=== PATIENT | female | born 1995 | race Hispanic/Latino ===

== ENCOUNTER 2018-05-21 06:09 | Emergency (ER) | payer BC, OTHER ==
--- NOTE | 2018-05-21 06:25 | EDPHYS ---
Physician Documentation [facility] Name: Anny Gan Age: 23 yrs Sex: Female : 1995 Arrival Date: 05/21/2018 Time: 06:12 Bed 13 Private MD: ED Physician nEzo Johnson HPI: 05/21 06:23 This 23 yrs old Female presents to ER via Unassigned with complaints of Ear kb Pain. 06:23 The patient presents with pain, severe. The complaints affect the right ear. Onset: The kb symptoms/episode began/occurred this morning, at 03:00. Modifying factors: The symptoms are alleviated by nothing, the symptoms are aggravated by nothing. Associated signs and symptoms: The patient has no apparent associated signs or symptoms. Severity of symptoms: At their worst the symptoms were moderate severe in the emergency department the symptoms are unchanged. The patient has not experienced similar symptoms in the past. The patient has not recently seen a physician. 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 - Social history:: Smoking status: Patient/guardian denies using tobacco, never smoked. - Ebola Screening: : No symptoms or risks identified at this time. ROS: 06:23 Constitutional: Negative for fever, chills, and weight loss, Neck: Negative for injury, kb pain, and swelling, Cardiovascular: Negative for chest pain, palpitations, and edema, Abdomen/GI: Negative for abdominal pain, nausea, vomiting, diarrhea, and constipation, Back: Negative for injury and pain, MS/Extremity: Negative for injury and deformity, Skin: Negative for injury, rash, and discoloration, Neuro: Negative for headache, weakness, numbness, tingling, and seizure. 06:23 ENT: Positive for ear pain, rhinorrhea. 06:23 Respiratory: Positive for cough, Negative for dyspnea on exertion, hemoptysis, orthopnea, pleurisy, shortness of breath, sputum production, wheezing. Exam: 06:23 Constitutional: This is a well developed, well nourished patient who is awake, alert, kb and in no acute distress. Head/Face: Normocephalic, atraumatic. Chest/axilla: Normal chest wall appearance and motion. Nontender with no deformity. No lesions are appreciated. Cardiovascular: Regular rate and rhythm with a normal S1 and S2. No gallops, murmurs, or rubs. Normal PMI, no JVD. No pulse deficits. Respiratory: Lungs have equal breath sounds bilaterally, clear to auscultation and percussion. No rales, rhonchi or wheezes noted. No increased work of breathing, no retractions or nasal flaring. Abdomen/GI: Soft, non-tender, with normal bowel sounds. No distension or tympany. No guarding or rebound. No evidence of tenderness throughout. Skin: Warm, dry with normal turgor. Normal color with no rashes, no lesions, and no evidence of cellulitis. MS/ Extremity: Pulses equal, no cyanosis. Neurovascular intact. Full, normal range of motion. Neuro: Awake and alert, GCS 15, oriented to person, place, time, and situation. Cranial nerves II-XII grossly intact. Motor strength 5/5 in all extremities. Sensory grossly intact. Cerebellar exam normal. Normal gait. 06:23 ENT: External ear(s): are unremarkable, Ear canal(s): are normal, TM's: bulging, on the right, erythema, that is moderate, on the right, Nose: is normal, Mouth: is normal, Posterior pharynx: is normal. Vital Signs: 06:15 BP 103 / 73; Pulse 95; Resp 18 S; Temp 98.7(O); Pulse Ox 100% on R/A; Weight 72.57 kg cc3 (R); Height 5 ft. 5 in. (165.10 cm) (R); 06:15 Body Mass Index 26.63 (72.57 kg, 165.10 cm) cc3 MDM: 06:21 Patient medically screened. kb 06:23 Data reviewed: vital signs, nurses notes. Data interpreted: Pulse oximetry: on room air kb is 100 %. Interpretation: normal. Counseling: I had a detailed discussion with the patient and/or guardian regarding: the historical points, exam findings, and any diagnostic results supporting the discharge/admit diagnosis, the need for outpatient follow up, a family practitioner, to return to the emergency department if symptoms worsen or persist or if there are any questions or concerns that arise at home. Administered Medications: 06:35 CANCELLED (Duplicate Order): Tylenol 1000 mg PO once kb 06:36 Drug: Tylenol 1000 mg Route: PO; cc3 06:39 Follow up: Response: No adverse reaction cc3 Disposition: 05/21/18 06:25 Discharged to Home. Impression: Otitis media, unspecified, right ear. - Condition is Stable. - Discharge Instructions: Otitis Media, Adult, [id number]. - Prescriptions for Amoxicillin 875 mg Oral Tablet - take 1 tablet by ORAL route every 12 hours for 7 days; 14 tablet. - Medication Reconciliation Form, Thank You Letter, Antibiotic Education, Prescription Opioid Use form. - Follow up: Emergency Department; When: As needed; Reason: Worsening of condition. Follow up: Private Physician; When: 2 - 3 days; Reason: Recheck today's complaints, Continuance of care, Re-evaluation by your physician. Signatures: Jazmin Nowak FNP-C FNP-Jennifer Sherman cc3 Corrections: (The following items were deleted from the chart) 06:35 06:35 Tylenol 1000 mg PO once ordered. kb kb 06:40 06:25 05/21/2018 06:25 Discharged to Home. Impression: Otitis media, unspecified, right cc3 ear. Condition is Stable. Forms are Medication Reconciliation Form, Thank You Letter, Antibiotic Education, Prescription Opioid Use. Follow up: Emergency Department; When: As needed; Reason: Worsening of condition. Follow up: Private Physician; When: 2 - 3 days; Reason: Recheck today's complaints, Continuance of care, Re-evaluation by your physician. kb
--- NOTE | 2018-05-21 06:25 | ER ---
Nurse's Notes [facility] Name: Anny Gan Age: 23 yrs Sex: Female : 1995 Arrival Date: 05/21/2018 Time: 06:12 Bed 13 Private MD: Diagnosis: Otitis media, unspecified, right ear Presentation: 05/21 06:15 Presenting complaint: Patient states: nontraumatic right ear pain since 0330H this cc3 morning. Transition of care: patient was not received from another setting of care. Onset of symptoms was May 21, 2018. Risk Assessment: Do you want to hurt yourself or someone else? Patient reports no desire to harm self or others. Initial Sepsis Screen: Does the patient meet any 2 criteria? No. Patient's initial sepsis screen is negative. Does the patient have a suspected source of infection? No. Patient's initial sepsis screen is negative. Care prior to arrival: None. 06:15 Method Of Arrival: Ambulatory cc3 06:15 Acuity: CRESCENCIO 4 cc3 Triage Assessment: 06:15 General: Appears in no apparent distress. comfortable, Behavior is calm, cooperative, cc3 appropriate for age. Pain: Complains of pain in right ear. EENT: Reports pain in right ear. Neuro: Level of Consciousness is awake, alert, obeys commands, Oriented to person, place, time, situation, Appropriate for age. Cardiovascular: Denies chest pain, Patient's skin is warm and dry. Respiratory: Airway is patent Respiratory effort is even, unlabored, Respiratory pattern is regular, symmetrical. GI: Abdomen is round patient 13 weeks . : No signs and/or symptoms were reported regarding the genitourinary system. Derm: No signs and/or symptoms reported regarding the dermatologic system. Musculoskeletal: Circulation, motion, and sensation intact. Range of motion: intact in all extremities. 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 - Social history:: Smoking status: Patient/guardian denies using tobacco, never smoked. - Ebola Screening: : No symptoms or risks identified at this time. Screenin:15 Abuse screen: Denies threats or abuse. Denies injuries from another. Nutritional cc3 screening: No deficits noted. Tuberculosis screening: No symptoms or risk factors identified. Fall Risk Ambulatory Aid- None/Bed Rest/Nurse Assist (0 pts). Gait- Normal/Bed Rest/Wheelchair (0 pts) Mental Status- Oriented to own ability (0 pts). Assessment: 06:15 General: see triage assessment. cc3 06:39 Reassessment: Patient appears in no apparent distress at this time. Patient and/or cc3 family updated on plan of care and expected duration. Pain level reassessed. Patient is alert, oriented x 3, equal unlabored respirations, skin warm/dry/pink. 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 No IV cannula in situ. Patient left ER vitally stable and ambulatory with her mother. Vital Signs: 06:15 BP 103 / 73; Pulse 95; Resp 18 S; Temp 98.7(O); Pulse Ox 100% on R/A; Weight 72.57 kg cc3 (R); Height 5 ft. 5 in. (165.10 cm) (R); 06:15 Body Mass Index 26.63 (72.57 kg, 165.10 cm) cc3 ED Course: 06:12 Patient arrived in ED. ds1 06:12 Jennifer Nick is Primary Nurse. cc3 06:15 Arm band placed on right wrist. Patient notified of wait time. cc3 06:15 Patient has correct armband on for positive identification. Bed in low position. Call cc3 light in reach. Side rails up X 1. Pulse ox on. NIBP on. 06:21 [facility]C [facility]. kb 06:21 Enzo Johnson MD is Attending Physician. kb 06:25 Triage completed. cc3 06:39 No provider procedures requiring assistance completed. Patient did not have IV access cc3 during this emergency room visit. Administered Medications: 06:35 CANCELLED (Duplicate Order): Tylenol 1000 mg PO once kb 06:36 Drug: Tylenol 1000 mg Route: PO; cc3 06:39 Follow up: Response: No adverse reaction cc3 Outcome: 06:25 Discharge ordered by . kb 06:39 Discharged to home ambulatory, with family. cc3 06:39 Condition: stable 06:39 Discharge instructions given to patient, family, Instructed on discharge instructions, follow up and referral plans. medication usage, Demonstrated understanding of instructions, follow-up care, medications, Prescriptions given X 1. 06:40 Patient left the ED. cc3 Signatures: Jazmin Nowak, FRANCOIS WU-Chloe Fan ds1 Jennifer Nick cc3
[2018-05-21] MEDS ORDERED: ACETAMINOPHEN 500 MG TAB ONE (06:48)
== END 2018-05-21 06:40 | disposition home or self-care (01) ==
LOC: ER 06:09
DX: O26.891 Other specified pregnancy related conditions, first trimester (principal); H66.91 Otitis media, unspecified, right ear
CPT/HCPCS: 99283